=== PATIENT | male | born 1970 | race Caucasian/White ===

== ENCOUNTER 2016-10-20 18:20 | Observation (INO) | payer OTHER ==
[~2016-10-20] VITALS: Ht 177.8 cm; Wt 93.2 kg
[2016-10-20 18:49] VITALS: BP 133/87; PULSE 70; RESP 18; O2SAT 97
--- NOTE | 2016-10-20 20:09 | DRSVH ---
PROCEDURE: CT BRAIN WITHOUT CONTRAST ([id number]) INDICATIONS: Possible TIA TECHNIQUE: Noncontrast 4.5 mm thick angled axial sections acquired from the foramen magnum to the vertex, with c oronal reformats. COMPARISON: [facility], CT, CT BRAIN WO CON, 11/26/2015, 13:18. FINDINGS: Image quality: Excellent. CSF spaces: Basal cisterns are patent. No extra-axial fluid collections. Ventricles are normal in size and shape. Brain: No midline shift. No intracranial masses or hemorrhage. Hooper-white matter interface is norm al. Skull and face: Calvarium and visualized facial bones are intact, without suspicious lesions. Sinuses: Visualized sinuses and mastoids are clear. IMPRESSION: No CT evidence of acute intracranial pathology. Dictated by: Kaiden Arroyo M.D. on 10/20/2016 at 20:00 Approved by: Kaiden Arroyo M.D. on 10/20/2016 at 20:02
[2016-10-20 20:21] LABS: BASOPHILS % (AUTO) 0.5 % (0-3); EOSINOPHILS % (AUTO) 3.1 % (0-5); MONOCYTES % (AUTO) 8.8 % (4-12); Mean Corpuscular Hemoglobin 30.7 pg (27.0-35.0); Mean Corpuscular Volume 90.9 fL (81-100); NEUTROPHILS % (AUTO) 59.3 % (40-74); Platelet Count 227 bil/L (150-400)
--- NOTE | 2016-10-20 20:28 | ED.REPORT ---
HPI-Stroke / CVA Oct 20, 2016 ED Provider: Librado Carr DO The patient is a 46 yo male with history of Factor V Leiden, recurrent DVT, hyperlipidemia, and psoriasis who presents to the ER for left-sided numbness and tingling. While he was driving home from work around 1700, patient reports to have maj-mrr-mwsibr sensation in his left calf that radiated up to his left cheek. The tingling sensation lasted about 10-15 seconds, then he developed numbness on the whole left side of his body. He denies any headache, dizziness, slurred speech, weakness, nausea, or vomiting. Patient had DVT before he was diagnosed with Factor V Leiden and has not had any DVT since. No history of PE. Last IRN was 2.1 last week per the patient. His symptoms are all resolved by the time he arrived to the ER. Patient has a chronic wound on the medial left ankle that fluctuates, but he denies fever, chills, increasing redness, or pain. Nursing Notes Stated Complaint: LEFT SIDE BRISEYDA,LIKE PINS PRICKING,ON WARFARIN Chief Complaint: Neuro Symptoms/ Deficits Nursing Notes Reviewed: Yes Allergies: Coded Allergies: No Known Allergies (Unverified , 10/20/16) Scheduled Atorvastatin (Lipitor) 10 Mg Tab 10 MG PO HS (Reported) Cetirizine HCl (Zyrtec) 10 Mg Capsule 10 MG PO HS (Reported) Ranitidine (Ranitidine) 150 Mg Capsule 300 MG PO HS (Reported) Warfarin Sodium (Warfarin Sodium) 5 Mg Tablet 7.5 MG PO ,,,Wed, ( Reported) Warfarin Sodium (Warfarin Sodium) 5 Mg Tablet 10 MG PO Wed and Th (Reported) General Time Seen by Provider: 20:05 Chief Complaint Numbness Left-sided Hx Obtained From: Patient, Spouse Arrived By: Walk-in Time last known well 1700 Sudden in Onset?: Yes Symptom Duration: 1 - 15 minutes Progression Since Onset: Rapidly improving Severity: Current: No pain currently Associated with: Denies: Aura, Balance problem, Bowel dysfunction, Confusion, Double vision, Gait problem, Loss of consciousness, Loss of vision, Nausea, Speech problem, Vertigo, Visual disturbance, Vomiting Pertinent Negative: Pt denies other symptoms Context Related History: Reports: Coagulation disorder Recent Healthcare: No recent doctor visit, No recent hospitalization Similar Sx Previous: No Risk Factors )( CVA Risk Stratification Clotting disorder Risk factors reviewed IC Bleed Risk Stratification Blood thinners Coagulation disorder Risk factors reviewed SAH Risk Stratification Anticoagulation therapy Coagulopathy Risk factors reviewed Past Medical History Past Medical History Factor V Leiden Spinal stenosis Reports: Hyperlipidemia Past Surgical History Left knee surgery Smoking History Former Smoker (quit 8 years ago) Social History Alcohol Use: "Social" Drug Use: Denies drug use Other Social History: Good social support, Ambulatory Status Independent Review of Systems Basic Review of Systems : No dysuria, No frequency Hematologic: No bleeding Endocrine: No cold intolerance, No heat intolerance, No weight gain, No weight loss Constitutional: Reports: Fatigue, Denies: Chills, Lethargy, Malaise, Weakness - generalized Eyes: Denies: Blurred bilateral, Photophobia, Visual loss bilateral Respiratory: Denies: Dyspnea on exertion, Pleuritic pain, Shortness of breath, Wheezing Cardiovascular: Denies: Chest pain, Dyspnea on exertion, Orthopnea, Palpitations, Syncope GI: Denies: Abdominal pain, Dysphagia, Nausea, Vomiting Musculoskeletal: Reports: Back pain Skin: Reports Bruising, Reports Rash Neurologic: Reports: Numbness, Denies: Change LOC, Confusion, Dizziness, Focal weakness, Headache, Lightheaded, Problem walking, Slurred speech, Spinning sensation, Syncope, Unable to speak, Vision change, Weakness Psychiatric: Denies: Anxiety, Change mental status, Confusion, Delusional Physical Exam Initial Vital Signs Vital Signs (First) Date Time Temp Pulse Resp B/P Pulse Ox O2 Delivery O2 Flow Rate FiO2 10/20/16 18:49 36.3 70 18 133/87 97 Room Air Initial VS: Vital signs normal ENT: Mucous membranes moist, Conjunctiva normal, No scleral icterus Abdomen / GI: Soft, Non-tender, No guarding, No rebound, No distention Lymphatic: No lymphadenopathy Skin: Warm, Dry, No cyanosis Psychiatric: Mood/affect normal, Behavior normal, Normal thought content General/Constitutional: Awake, Alert, No acute distress, Well appearing, Well developed, Cooperative, Not toxic appearing Respiratory / Chest: Atraumatic, Breath sounds NL, Breath sounds = bilat, No respiratory distress, No rhonchi, No wheezing Rales / Rhonchi: Positive: Rales bilateral bases Cardiovascular: Heart rate NL, Regular rhythm, Heart sounds NL, No gallop, No murmurs, Peripheral circulation NL, Pulses = bilaterally Neurologic: Oriented X3, Speech NL, No motor deficits, No sensory deficits, CN II - XII intact, Reflexes equal bilat, Cerebellar NL, Memory NL, Gait NL Rash / Lesion Notes: Scattered psoriatic patches in bilateral lower extremities. Left medial ankle with a chronic wound with erythema and minimal purulent discharge. Interpretation & Diagnostics Lab Results Interpretation Result Diagram: 10/20/16201210/20/16 2013 Test 10/20/16 20:13 White Blood Count 7.7th/mm3 (3.8-10.1) Red Blood Count 4.75mil/mm3 (4.40-5.80) Hemoglobin 14.6g/dL (13.8-17.2) Hematocrit 43.2% (41.0-50.0) Mean Corpuscular Volume 90.9fL (81-100) Mean Corpuscular Hemoglobin 30.7pg (27.0-35.0) Mean Corpuscular Hemoglobin Concent 33.8% (32.0-37.0) Red Cell Distribution Width 13.3% (12.3-15.4) Platelet Count 227bil/L (150-400) Neutrophils (%) (Auto) 59.3% (40-74) Lymphocytes (%) (Auto) 28.2% (14-46) Monocytes (%) (Auto) 8.8% (4-12) Eosinophils (%) (Auto) 3.1% (0-5) Basophils (%) (Auto) 0.5% (0-3) Prothrombin Time 22.2sec (8.1-12.5) Prothromb Time International Ratio 2.04ratio Sodium Level 140mEq/L (134-144) Potassium Level 3.9mEq/L (3.5-5.2) Chloride Level 105mEq/L (97-108) Carbon Dioxide Level 24mmol/L (18-29) Blood Urea Nitrogen 17mg/dL (6-24) Creatinine 0.91mg/dL (0.76-1.27) Estimat Glomerular Filtration Rate 95mL/min (>59) Glucose Level 99mg/dL (60-99) Calcium Level 9.1mg/dL (8.5-10.1) Magnesium Level 2.0mg/dL (1.6-2.6) Total Bilirubin 1.1mg/dL (0.0-1.2) Aspartate Amino Transf (AST/SGOT) 20U/L (0-50) Alanine Aminotransferase (ALT/SGPT) 20U/L (0-44) Alkaline Phosphatase 75U/L (25-150) Total Protein 7.0g/dL (6.4-8.4) Albumin 4.4g/dL (3.4-5.0) Triglycerides Level 150mg/dL (0-149) Cholesterol Level 95mg/dL (100-199) LDL Cholesterol, Calculated 34.000mg/dL (0-99) VLDL Cholesterol 30.000mg/dL HDL Cholesterol 31mg/dL (>39) Cholesterol/HDL Ratio 3.06 (0.0-4.4) Hold Mace Top Tube Received (Received) Lab values outside NL range: no clinical significance. CT Head Interpretation IMPRESSION: No CT evidence of acute intracranial pathology. Dictated by: Kaiden Arroyo M.D. on 10/20/2016 at 20:00 Approved by: Kaiden Arroyo M.D. on 10/20/2016 at 20:02 Re-Eval/Medical Decision Med Decision/Clinical Course 46 yo male with history of Factor V Leiden, recurrent DVT, hyperlipidemia, and psoriasis who presents to the ER for left-sided numbness and tingling from his calf radiates to his left cheek. The symptoms resolved in 10-15 seconds, and he denies any other symptoms. Patient is on chronic anticoagulation with therapeutic IRN for 8 years and has not had any DVT since. No similar symptoms previously. Neurological exam is completely normal. His CT head and labs are also normal. However, it is concerning that the patient had the TIA while on anticoagulation. Therefore, patient needs to be admitted to the hospital for an MRI stroke protocol in the morning. Patient concurs with the plan. Source of Hx: Family Re-Evaluation/Progress : Time of Eval: 20:48 )( Re-Eval Neurologic Exam: Alert, Oriented X3 Re-Evaluation/Progress Note: CT and labs results discussed with the patient and his . Plan for admission for MRI Stroke in the morning. Patient concurs. Consultation : Referral / Consult Name: Emeterio Madrid MD Consulted With: Hospitalist Requested Call at: 20:55 Call Returned at: 21:10 Block Cutter: Will see patient, Agrees with plan, Accepts admit Severity: Serious condition Diagnosis Appears: Evident Comorbidities: Anticoagulation therapy Counseled Regarding: Diagnosis, Lab results, Need for follow-up, Need for admission Patient Discharge & Departure Shift Change Sign-Out Response to Therapy: Improved Impression: Primary Impression: TIA (transient ischemic attack) Transient cerebral ischemia type: other Qualified Code: G45.8 - Other transient cerebral ischemic attacks and related syndromes Additional Impression: Chronic anticoagulation Disposition: ADMITTED TO HOSPITAL Discharge Condition All VS Reviewed: Yes Condition: Stable Referrals: Stefani Alvarez PA-C (PCP) Attending Statement I personally took a history. I concur with physical exam. Deficits of resolved. TIA on warfarin. This warrants stroke workup with MRI, echo and carotid duplex. Hospitalist admission. copies to: Stefani Alvarez PA-C, Ngochanh H DO Oct 20, 2016 20:28 Librado Carr Oct 20, 2016 22:50
[2016-10-20 20:36] LABS: INR 2.04 ratio
[2016-10-20] MEDS ORDERED: ATRV10T PO (21:41)
[2016-10-20] MEDS ORDERED: CETI10CA PO (21:41)
[2016-10-20] MEDS ORDERED: WARF5TAB7 PO ×2 (21:41)
[2016-10-20] MEDS ORDERED: RANI150C4 PO (21:41)
--- NOTE | 2016-10-20 21:44 | NUR ---
code status present in room during patient and Dr. Morales discussion regarding code status. initially patient decided and verbalized to Dr. Morales to have no cpr after discussion with Dr. Shea. immediately after Dr. Morales left room patient states "i changed my mind, I do want to have CPR". patient's states "yes for sure". briefly discussed further and confirmed with patient that he wanted to be a full code. Dr. Morales notified in person that patient requested to be a full code and have CPR. Dr. Morales states understanding. attending MD Dr. Jensen additionally notified of patient wishes and to follow up with patient and family.
[2016-10-20] MEDS ORDERED: Alum-Mag Hydrox-Simeth 30 mL Suspension PO PRN (21:45)
[2016-10-20] MEDS ORDERED: Labetalol 5 mg/mL 4 mL Inj IVPUSH PRN (21:45)
[2016-10-20] MEDS ORDERED: Ondansetron 2 mg/mL 2 mL Inj IVPUSH PRN (21:45)
[2016-10-20] MEDS ORDERED: Polyethylene Glycol (PEG) 17 Gm Powder PO PRN (21:45)
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
--- NOTE | 2016-10-20 22:30 | NUR ---
Admit ER admit brought by tech @ this time, accompanied by spouse,report taken from Thais Barros RN @ 21:25, Dx TIA ,CT neg. swallow screen passed in ED per report Stroke info given,admission complete , orientated to room and plan,MRI/Echo in am, also WOC for L ankle ulcer present on admit
[2016-10-20 22:42] VITALS: BP 132/78; PULSE 78; RESP 16; O2SAT 96
[2016-10-20 22:46] VITALS: BP 136/77; PULSE 71; RESP 18; O2SAT 97
[2016-10-21 05:46] VITALS: BP 114/62; PULSE 62; RESP 17; O2SAT 95
[2016-10-21 08:06] LABS: BASOPHILS % (AUTO) 0.5 % (0-3); EOSINOPHILS % (AUTO) 3.5 % (0-5); MONOCYTES % (AUTO) 8.6 % (4-12); Mean Corpuscular Hemoglobin 30.3 pg (27.0-35.0); Mean Corpuscular Volume 91.5 fL (81-100); NEUTROPHILS % (AUTO) 60.9 % (40-74); Platelet Count 199 bil/L (150-400)
--- NOTE | 2016-10-21 08:40 | DRSVH ---
PROCEDURE: MRI STROKE PROTOCOL ([id number]) Pre- and post-contrast brain MRI, non-contrast brain MR angiogram, pre- and postcontrast neck MR aria ogram INDICATIONS: Transient Left sided numbess/paresthesia TECHNIQUE: Brain: Noncontrast axial T1 spin echo, axial T2 fast spin echo, sagittal and axial FLAIR, coronal T2 fast spin echo, axial gradient echo, axial diffusion and ADC through the brain. After the administr ation of contrast, axial 3D VIBE of the cranial vasculature and brain. Brain MRA: Non-contrast 3-D time of flight MR angiogram, with multiple iwpbsmj-dbjdmyowp-gzembfzsva (MIP) reformats performed. Neck MRA: Axial and sagittal TruFISP through the neck. Coronal dynamic MR angiogram during administ ration of contrast in the arterial and venous phases, with 3-dimenstional taepirs-hzfeqhhkl-zyygwoyql n (MIP) reformats constructed from subtraction images. COMPARISON: [facility], MR, MR BRAIN W&WO CON, 07/11/2015, 20:46. [facility] , CT, CT BRAIN WO CON, 10/20/2016, 19:52. FINDINGS: Image quality: Excellent. BRAIN: CSF spaces: Ventricles are normal in size and shape. Basal cisterns are patent. No extra-axial flu id collections. Brain: No intracranial bleeds or mass effects. The previously seen curvilinear focus of subcortical FLAIR signal abnormality within the left parietal lobe has nearly resolved, with a minimal, 3 mm diam eter region of elevated FLAIR signal remaining. Hooper-white matter interface is normal. Diffusion derrek ghted images show no acute ischemic insults. Brainstem appears normal. Normal intravascular flow vo ids are present. No abnormal intracranial enhancement. Skull and face: Calvarial marrow signal is normal. Orbits appear normal. Sinuses: There is mild mucosal thickening within the maxillary and ethmoid sinuses. Mastoids are hipolito r. BRAIN MR ANGIOGRAM: Anterior circulation: Intracranial internal carotid arteries are normal in size and enhancement. Th e flow within the paired anterior cerebral arteries is normal and symmetric. The flow within the mid dle cerebral arteries is normal and symmetric. The anterior communicating artery is seen. No stenos es, occlusions, or aneurysms. Posterior circulation: The visualized portions of the vertebral arteries demonstrate normal caliber, and join to form a normal appearing basilar artery. The flow within the posterior cerebral arteries is normal and symmetric. No stenoses, occlusions, or aneurysms. NECK MR ANGIOGRAM: Carotids: Great vessels demonstrate a conventional anatomy as they arise from the aortic arch. The origins of the common carotid arteries appear patent. The calibers and courses of both common caroti d arteries are normal. The bifurcation regions appear normal bilaterally. The internal carotid grecia fernando demonstrate normal caliber. Pharyngeal loops are present bilaterally. Posterior circulation: The origins of the vertebral arteries appear patent. More superior portions of both vertebral arteries demonstrate normal course and caliber, and join to form a normal appearing basilar artery. Miscellaneous: Subclavian arteries appear patent. Pre-contrast images through the neck show no soft tissue abnormalities. IMPRESSION: BRAIN MRI: 1. No acute process. No recent infarct. 2. Nearly resolved small infarct/insult within the left parietal lobe. BRAIN MR ANGIOGRAM: Negative cerebral MR angiography. NECK MR ANGIOGRAM: 1. No internal carotid artery stenosis bilaterally. 2. Patent bilateral vertebral arteries. The estimate of stenosis included in the report of the imaging study was calculated using the NASCET method Dictated by: Kerline Carvalho M.D. on 10/21/2016 at 8:32 Approved by: Kerline Carvalho M.D. on 10/21/2016 at 8:38
[2016-10-21 10:00] VITALS: BP 118/73; PULSE 98; RESP 20; O2SAT 98
--- NOTE | 2016-10-21 10:59 | NUR ---
Social Work: Screening / Readiness for d/c Data: Pt is a 46 y/o male admitted for TIA. Pt's PCP is Dr Alvarez, pt's insurance is [employer]. EMR reviewed. Readmit score is 2, low. Pt discussed in rounds, MD states pt's MRI was negative and an echo is scheduled for today. No d/c planning needs anticipated at this time. MD states pt will likely be medically ready for d/c tomorrow. FACE WORKER will continue to follow for possible d/c needs. Assessment: Pt who is independent at baseline. Plan: Pt will d/c home via POV when medically stable, likely tomorrow per MD. No d/c planning needs anticipated at this time. FACE WORKER will continue to follow for possible d/c needs. DINH Gomez
--- NOTE | 2016-10-21 13:05 | PCM.PHAPRO ---
Progress Date of Service: Oct 21, 2016 Warfarin dosing Date Oct 21 INR 2.04 N/A INR change Warf Dose 7.5 MG 7.5 MG A/ INR was not drawn today but was admitted with therapeutic INR on home dose. P/ Continue with home dose, re-evaluate with AM labs tomorrow. Ray Piña Oct 21, 2016 13:05
--- NOTE | 2016-10-21 14:02 | DRSVH ---
[facility] [address] [place] [address] Echocardiogram Report Name: ANTWAN DANIEL Study Date: 10/21/2016 Height: 70 in Hospital Exam Location: [facility] Weight: 206 lb Gender: Male BSA: 2.1 m2 : 1970 Age: 46 yrs BP: 114/62 mm Hg Reason For Study: TIA Ordering Physician: [facility] Performed By: [place] Referring Physician: REGGIE SANDOVAL Interpretation Summary The left ventricle is normal in size. Left ventricular systolic function is normal without focal wall motion abnormalities. The ejection fraction is estimated to be 60-65%. The right ventricle is normal in size, thickness and function. Right ventricular systolic pressure is estimated to be 15 mmHg plus the clinically estimated CVP which cannot be estimated on this exam. Both atria are normal in size. Bubble study revealed a fair amount of bubbles crossing the atrial septum cosistent with a PFO with right to left shunting. Color Doppler did not reveal left to right shunting. There is no significant valvular heart disease. The aortic root is normal size. Procedure: A two-dimensional transthoracic echocardiogram with color flow and Doppler was performed. The study quality was technically adequate. There is no prior echocardiogram noted for this patient. A saline contrast injection was performed to assess for cardiac shunting. The patient was in sinus bradycardia with heart rates between 55-62 bpm during the exam. Left Ventricle: The left ventricle is normal in size. Left ventricular wall thickness is borderline increased. Left ventricular systolic function is normal without focal wall motion abnormalities. The ejection fraction is estimated to be 60-65%. Assessment of diastolic parameters indicates normal left ventricular diastolic function and normal filling pressures. Right Ventricle: The right ventricle is normal in size, thickness and function. Atria: Both atria are normal in size. Injection of contrast documented an interatrial shunt. Mitral Valve: The mitral valve is normal. There is trace mitral regurgitation. Aortic Valve: The aortic valve is normal in structure and function. No aortic regurgitation is present. Tricuspid Valve: The tricuspid valve is normal. There is mild tricuspid regurgitation. Right ventricular systolic pressure is estimated to be 15 mmHg plus the clinically estimated CVP which cannot be estimated on this exam. Pulmonic Valve: The pulmonic valve is not well seen, but is grossly normal. There is no significant valvular heart disease. Great Vessels: The aortic root is normal size. The dimensions of the ascending aorta are normal. The pulmonary artery is normal size. The inferior vena cava was not well visualized. Pericardium/ Pleura There is no pericardial effusion. There is no pleural effusion. MMode/2D Measurements & Calculations LVIDd: 4.7 cm RA long axis LVOT diam LVIDs: 3.6 cm LA A2 area: 16.8 cm FS: 22.8 % LA A4 area: 15.2 cm RA area AoV Opening EPSS: 0.45 cm LA length (vol): 5.1 cm IVSd: 1.0 cm LA vol: 42.6 ml : 15.6 cm Ao root diam LVPWd: 1.2 cm LA vol index RA vol : 38.3 ml asc Aorta RA Diam: 3.0 cm IVC diam: 2.6 cm : 18.1 mm2 LV gaytan. diameter/BSA LV sys. diameter/BSA RVD2 (mid) (cm/m^2): 2.2 (cm/m^2): 1.7 : 3.2 cm Doppler Measurements & Calculations Ao V2 max MV E max marc MV E/A: 1.2 TR max marc : 100.4 cm/sec : 74.9 cm/sec Med Peak E' Marc : 193.0 cm/sec Ao max P.0 mmHg MV A max marc TR max PG Ao mean P.6 mmHg : 62.8 cm/sec E/E' med: 10.3 : 14.9 mmHg LVOT Max Marc Lat Peak E' Marc PA V2 max : 95.0 cm/sec : 88.4 cm/sec CONRAD(I,D): 3.2 cm E/E' lat: 5.6 PA mean PG sev ratio: 0.85 E/e' average: 8.0 : 1.8 mmHg MV dec time: 0.20 sec Ao V2 mean LV V1 max PG PA V2 mean : 76.5 cm/sec : 63.6 cm/sec Ao V2 VTI LV V1 VTI: 19.4 cm CONRAD(V,D): 3.6 cm2 CONRAD indexed to BSA (cm^2/m^2): 1.5 Reading Physician:PM
--- NOTE | 2016-10-21 14:02 | PCM.DIMED ---
Discharge Instructions Date of Service Oct 21, 2016 Dates of Hospitalization Oct 20, 2016 at 21:48 Discharge Diagnosis Discharge Diagnosis TIA, Hx of Factor V Lieden Diet Discharge Diet: Heart Healthy Activity Discharge Activity: No restrictions Call your provider Call your provider for: Fever or Chills, Shortness of breath, Bleeding, Chest pain, Vomitting, Excessive diarrhea, Weakness (unilateral) Patient Instructions Patient Instructions Take a baby ASA daily Follow-up plan F/U with PCP in one week, PCP to review the echocardiogram Meka Zuniga DO Oct 21, 2016 14:02
[2016-10-21] MEDS ORDERED: ASPI-973 PO (14:03)
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
--- NOTE | 2016-10-21 14:41 | NUR ---
NATIONAL INVESTIGATIVE PRODUCER consult received at [phone] on 10/21/16. RN called NATIONAL INVESTIGATIVE PRODUCER to give verbal cancellation, per Dr. Zuniga, at [phone]. NATIONAL INVESTIGATIVE PRODUCER will d/c.
--- NOTE | 2016-10-21 14:57 | NUR ---
Social Work: Discharge Data: Pt is on day 1 of hospitalization. EMR reviewed. D/C orders are in. No d/c planning needed at this time. DIRECTOR OF MIDWIFERY/STAFF MIDWIFE will continue to follow if needs arise. Assessment: Pt who is independent at baseline. Plan: Pt will d/c home via POV today. No d/c planning needed at this time. DIRECTOR OF MIDWIFERY/STAFF MIDWIFE will continue to follow if needs arise. DINH Gomez
--- NOTE | 2016-10-21 15:00 | NUR ---
SWALLOW EVALUATION SPOKE WITH DR. AGUSTIN THAT NURSE SWALLOW SCREEN WAS DONE IN THE MORNING AND PATIENT PASS THE SCREENING, SHE IS OK TO DISCHARGE PATIENT.
--- NOTE | 2016-10-21 15:50 | NUR ---
Discharge pt. dc'd this afternoon; discharge instructions reviewed with pt. and family; medications reviewed; prescription given; no questions about medications or diagnoses. Pt. to make f/u appointments when at home. PIV dc'd; catheter intact. Belongings with pt. No questions about care; escorted downstairs ambulatory by RN.
--- NOTE | 2016-10-21 16:53 | NUR ---
Wound Note Patient seen at bedside for small stasis ulcer at left medial ankle. Recommend follow up with Dr Barros for reflux study and possible venous ablation, dressed small ulcer <1 cm diameter with xeroform and adhesive foam. Patient wears compression stockings.
[2016-10-21] MEDS ORDERED: Warfarin 5 MG, Warfarin 2.5 MG PO ONE ×2 (17:00)
== END 2016-10-21 15:00 | disposition home or self-care (01) ==
LOC: SED 18:20 → MOC 21:48
PROVIDERS: ADMIT Hospitalist; ATTEND Hospitalist
DX: R20.0 Anesthesia of skin (principal); G45.9 Transient cerebral ischemic attack, unspecified; D68.51 Activated protein C resistance; I82.509 Chronic embolism and thrombosis of unspecified deep veins of unspecified lower extremity; E78.5 Hyperlipidemia, unspecified; L40.9 Psoriasis, unspecified; F43.10 Post-traumatic stress disorder, unspecified; S91.302A Unspecified open wound, left foot, initial encounter; M48.00 Spinal stenosis, site unspecified; Z87.891 Personal history of nicotine dependence; Z79.01 Long term (current) use of anticoagulants; Z79.82 Long term (current) use of aspirin
CPT/HCPCS: 36415; 70450; 70549; 70553; 80053; 80061; 83036; 83735; 85025; 85610; 93005; 99285; A9585; C8929; G0378

== ENCOUNTER 2016-10-22 23:30 | Emergency (ER) | payer OTHER ==
[~2016-10-22] VITALS: Ht 177.8 cm; Wt 93.2 kg
[~2016-10-22 23:30] MED LIST: ASPI-973 PO; ATRV10T PO; CETI10CA PO; RANI150C4 PO; WARF5TAB7 PO
[2016-10-22 23:34] VITALS: BP 120/68; PULSE 88; RESP 14; O2SAT 96
--- NOTE | 2016-10-22 23:44 | ED.REPORT ---
HPI-Allergic Reaction Date of Service Oct 22, 2016 ED Provider: Ayaan Hyman MD The patient is a 46 year old male who presents to the ED due to an area of irritated skin on his left arm where an IV was placed 3 days ago. The pt was admitted to [facility] Wednesday night for a TIA and discharged yesterday at 1500. He complained of pain where his IV was placed in his left arm, he believes that tape from the IV irritated skin. He additionally complains of a region of skin irritation, weeping fluid and redness about his left medial ankle and admits that he has been compulsively scratching at the region. He is concerned that he may have now developed an infection about his left medial ankle. He denies any fevers or chills. He has not been taking any medications for this problem. He admits to a history of severe skin sensitivity and atopic dermatitis. Nursing Notes Stated Complaint: POSS ALLERGIC REACTION TO LEFT ARM AND LEFT ANKLE Chief Complaint: Skin Rash/Abscess Nursing Notes Reviewed: Yes Allergies: Coded Allergies: No Known Allergies (Unverified , 10/20/16) Scheduled Aspirin (Aspirin) 81 Mg Tablet 81 MG PO DAILY Atorvastatin (Lipitor) 10 Mg Tab 10 MG PO HS Cetirizine HCl (Zyrtec) 10 Mg Capsule 10 MG PO HS Mupirocin (Mupirocin Ointment) 22 Gm Oint...g. 1 APPLIC TOP TID Ranitidine (Ranitidine) 150 Mg Capsule 300 MG PO HS Warfarin Sodium (Warfarin Sodium) 5 Mg Tablet 7.5 MG PO ,,,Wed,Sa Warfarin Sodium (Warfarin Sodium) 5 Mg Tablet 10 MG PO Mon and Th General Time Seen by MD: 23:43 Chief Complaint Rash Hx Obtained From: Patient Arrived By: Walk-in Onset Occurred: 3 days ago Symptom Duration: Since onset Progression Since Onset: Gradually worsening Location: : Arm left: Leg left Quality: Itching Severity: Current: Mild Recent Healthcare: Recent doctor visit, Recent hospitalization Similar Sx Previous: Yes Past Medical History Past Medical History Factor V Leiden Spinal stenosis Reports: Hyperlipidemia Past Surgical History Left knee surgery Smoking History Former Smoker Social History Alcohol Use: "Social" Drug Use: Denies drug use Other Social History: Good social support, Ambulatory Status Independent Review of Systems Constitutional: Denies: Chills, Fever Skin: Reports Rash, Denies Diaphoresis Allergy / Immune: Reports: Allergic reaction, Itching Complete sys rev & neg: except as marked. Musculoskeletal: Reports: Extremity swelling (redness to left ankle and left arm) Physical Exam Initial Vital Signs Vital Signs (First) Date Time Temp Pulse Resp B/P Pulse Ox O2 Delivery O2 Flow Rate FiO2 10/22/16 23:34 36.4 88 14 120/68 96 Room Air Initial VS: Reviewed General/Constitutional: Awake, Alert, Cooperative Respiratory / Chest: Atraumatic, Breath sounds NL, Breath sounds = bilat, No respiratory distress Cardiovascular: Heart rate NL, Regular rhythm, Heart sounds NL Color / Condition: Positive: Rash present Rash / Lesion Notes: 10 cm by 10 cm erythematous appearing rash about the flexor region of left arm in the antecubital fossa corresponding with where IV was place and Tegaderm patch Head / Eyes: Atraumatic, Normocephalic, PERRL, EOMI Abdomen: Atraumatic, Soft, Non-tender Neurologic: Oriented X3, Speech NL, No motor deficits Wrist / Hand: Atraumatic, Inspection NL, No deformity Ankle / Foot: Neurologic intact Right Ankle: Positive: Erythema present erythematous rash on left medial ankle measuring 10 cm by 10 cm erythematous weeping, slight induration and erythema consistent with cellulitis Re-Eval/Medical Decision Med Decision/Clinical Course The patient is a 46 year old male who presents to the ED due to an area of irritated skin on his left arm where an IV was placed 3 days ago. The pt was admitted to [facility] Wednesday night for a TIA and discharged yesterday at 1500. He complained of pain where his IV was placed in his left arm, he believes that tape from the IV irritated skin. He additionally complains of a region of skin irritation, weeping fluid and redness about his left medial ankle and admits that he has been compulsively scratching at the region. He is concerned that he may have now developed an infection about his left medial ankle. He denies any fevers or chills. He has not been taking any medications for this problem. He admits to a history of severe skin sensitivity and atopic dermatitis. Here in the emergency department the patient is afebrile stable vital signs and examination as above. There is a region of atopic-appearing rash in a square shape about his left antecubital fossa where he appears to have an allergic reaction, likely due to a Tegaderm patch. About his left medial ankle there is a region where he has been vigorously excoriating his skin by scratching at himself. He has atopic changes about this region though there is also surrounding erythema, warmth and mild induration suggestive of developing cellulitis. The patient is otherwise in no apparent distress and well- appearing. I have prescribed hydrocortisone cream that he may apply to his left antecubital fossa for treatment of the atopic rash. About his left medial ankle he is to apply mupirocin ointment and keep the area completely covered at all times with dressings in order to prohibit further scratching and skin damage. I have also prescribed a 10 day course of Keflex. He was given Benadryl for itching. He is advised to return right away for any worsening redness, swelling, warmth or fevers. Prior to discharge follow-up and return precautions were reviewed in detail with the patient who verbalized understanding and agreement with the plan. The patient was discharged in stable condition. Discharge & Departure Primary Impression: Cellulitis Site of cellulitis: extremity Site of cellulitis of extremity: lower extremity Laterality: left Qualified Code: L03.116 - Cellulitis of left lower limb Additional Impressions: Atopic dermatitis Atopic dermatitis type: flexural Qualified Code: L20.89 - Other atopic dermatitis Contact dermatitis Contact dermatitis type: unspecified Contact dermatitis trigger: adhesive Qualified Code: L23.1 - Allergic contact dermatitis due to adhesives Itching Disposition: Home Discharge Condition All VS Reviewed: Yes Condition: Stable Additional Instructions: I am sending you home with antibiotics for the infection. Apply Mupirocin cream to the left ankle 2x/day with dressing so you cannot scratch the wound and take Benadryl for itching. Apply the steroid cream to the left arm. Keep the wound wrapped so it cannot be touched. Follow up with your primary care physician in the next week. Return to the Emergency Department for any new or worsening symptoms including fever, increased pain, warmth, redness, swelling, or discharge. Thank you for entrusting us with your care today. Referrals: Stefani Alvarez PA-C (PCP) Scribe Attestation Portion of this note were transcribed by Vijaya Torres. I, Dr. Hyman, personally performed the history, physical exam, and medical decision-making: I reviewed and confirmed the accuracy for the information in the transcribed note. Signed by: ruby Sanon, 10/23/16 0100 copies to: Stefani Alvarez PA-C, Beck O MD Oct 22, 2016 23:44 Vijaya Torres Oct 23, 2016 00:09
[2016-10-23] MEDS ORDERED: Hydrocortisone 2.5% 28 Gm Cream TOPICAL ONE (00:20)
[2016-10-23] MEDS ORDERED: Mupirocin 2% 22 Gm Ointment TOPICAL ONE (00:20)
[2016-10-23] MEDS ORDERED: MUPI22OI2 TOP (00:23)
[2016-10-23] MEDS ORDERED: _Cephalexin 500 mg Capsule PO SCH (08:30)
== END 2016-10-23 00:35 | disposition home or self-care (01) ==
LOC: SED 23:30
DX: L03.116 Cellulitis of left lower limb (principal); L20.89 Other atopic dermatitis; L23.1 Allergic contact dermatitis due to adhesives; E78.5 Hyperlipidemia, unspecified; Z79.82 Long term (current) use of aspirin; Z79.01 Long term (current) use of anticoagulants; Z87.891 Personal history of nicotine dependence